=== PATIENT | female | born 1940 | race Caucasian/White ===

== ENCOUNTER 2016-08-28 21:38 | Inpatient (IN) | payer MEDICARE ==
[~2016-08-28] VITALS: Ht 160 cm; Wt 55.5 kg
--- NOTE | 2016-08-28 23:10 | ED CLINICAL REPORT ---
Clinical Report - Physicians/Mid Levels [facility] [address] [place] [address] 08/28/2016 21:40 Patient: AISHA MALIN Time Seen: 2133. Arrived- By ambulance. Historian- EMS personnel and family. HISTORY OF PRESENT ILLNESS Chief Complaint: CHANGED MENTAL STATUS. The patient is described as having decreased responsiveness. This started today and is still present. ( states that pt has been bedridden and minimally verbal since suffering a CVA about 6 weeks ago. He states that he believes she is mentally clear, however. Today, he states, he heard her vomiting upstairs, and ran up to her bed. She vomited copiously, then became unresponsive, yet anxious, hyperventilating. Medics state that when they arrived, pt appeared in distress (anxious, tachypneic). states pt has opted to be DNR/DNI with limited interventions.). The patient was found unresponsive. The patient is usually bedridden (Pt is oriented, per , but nonverbal.). Similar symptoms previously: None. Recent medical care: The patient was seen recently by a health care provider. ( PT was in rehab for weeks after her stroke, and just came home a few days ago.). REVIEW OF SYSTEMS No fever, headache, head injury, dizziness or chest pain. No difficulty breathing, cough, sputum production, blurred vision or sore throat. No abdominal pain, nausea, diarrhea, black stools or difficulty with urination. No skin rash, joint pain, vomiting, bloody stools or back pain. ROS per . All systems otherwise negative, except as recorded above. PAST HISTORY Problems: Akathisia. Hypertension. Anemia. Chf. Hyperlipidemia. Depression. Atrial Fibrillation. CVA - Cerebrovascular Accident. Additional Surgeries: Peg tube. Medications: Probiotic Oral. Tylenol Oral, PRN. Sertraline HCl Oral (Concentrate 20 mg/mL) 5 ml, daily. Nutrisource Fiber Oral. Orajel Mouth/Throat. SEROquel Oral 25 mg, daily (0.5 tab). Polyvinyl Alcohol Ophthalmic. Biotene Moisturizing Mouth Mouth/Throat. Furosemide Oral 20 mg, 2x a day. Aspir-81 Oral. Ferrous Sulfate Oral (Elixir 220 (44 Fe) mg/5mL) 7.5 mL, daily. Vitamin c Oral (Tablet Chewable 500 mg). Potassium Chloride Oral (Liquid 20 MEQ/15ML (10%)), daily. Lisinopril Oral 10 mg, daily. Carvedilol Oral (Tablet 6.25 mg), 2xdaily. Atorvastatin Calcium Oral 20 mg, at bedtime. Allergies: Amlodipine. Phenergan. Simvastatin. Sulfa Drugs. SOCIAL HISTORY Never smoker. No alcohol use or drug use. ADDITIONAL NOTES The nursing notes have been reviewed. PHYSICAL EXAM Vital Signs: 08/28/2016 21:40 BP: 157/77. HR: 107. RR: 28. O2 saturation: 94%. Temp: 37 C. End tidal CO2: 19 mmHg. FLACC pain scale: 7/10. Have been reviewed. Appearance: ( Pt's eyes are open, but she does not respond to voice.). Patient in moderate distress. (Pt is diaphoretic, shaking, tachypneic.). Distress appears due to anxiety. Head: Head atraumatic. Eyes: Pupillary exam: (PERRL). ENT: Normal ENT inspection. Airway intact. Moist mucous membranes. Neck: Normal inspection. CVS: Tachycardia. Heart sounds normal. Pulses normal. Respiratory: No respiratory distress. Breath sounds normal. Abdomen: Soft and nontender. Back: Normal inspection. Skin: Skin warm. Normal skin color. No rash. Normal skin turgor. Moderate diaphoresis. Extremities: No lower extremity edema. Neuro: (Pt is not able to comply with the remainder of the neuro exam.). LABS, X-RAYS, AND EKG EKG: EKG time: (2221). No acute ischemia. Tachycardia. No ST elevation or depression. Prior EKG unavailable. The study has been interpreted contemporaneously by me. The study has been independently viewed by me. The EKG appears to be a good tracing. I agree with and confirm the computer reading of the EKG. Rhythm Strip #1: Time: (2235). Rate= 108. Sinus tachycardia. Regular rhythm. Narrow QRS complexes. No ectopy. Conduction normal. Normal ST segments and T waves. The study was interpreted by me. Chest X-ray: Infiltrate present. Normal heart size. Mediastinum normal. Great vessels normal. Soft tissues normal. No fracture. No bony lesion present. Views: AP (portable). Technique: good. The X-rays were independently viewed by me and interpreted contemporaneously by me. Prior films were not available for comparison. CT Head: White matter disease is present. No acute changes. No bony abnormalities, no hemorrhage, no intracranial mass, no midline shift and no hydrocephalus. There is atrophy is present. Head CT performed without contrast. The study was independently viewed by me, interpreted by the radiologist and contemporaneously by me and discussed with the radiologist. Prior studies were not available for comparison. Laboratory Tests: UA-Culture if indicated: (STANISLAV: 08/28/2016 22:10) ( [facility] 08/28/2016 22:51) Final results Test Result Flag Units (Reference) URINE COLOR YELLOW URINE APPEARANCE HAZY URINE GLUCOSE NEGATIVE (NEGATIVE) URINE BILIRUBIN NEGATIVE (NEGATIVE) URINE KETONE NEGATIVE (NEGATIVE) URINE SPECIFIC GRAVITY 1.015 (1.010-1.030) URINE PH 8.0 (5.0-8.0) URINE PROTEIN TRACE (NEGATIVE) URINE UROBILINOGEN 0.2 EU/dL (0.2-1.0) URINE NITRITE NEGATIVE (NEGATIVE) URINE BLOOD NEGATIVE (NEGATIVE) URINE LEUK ESTERASE NEGATIVE (NEGATIVE) URINE RBC 0-1 rbc/hpf (0-1) URINE WBC 0-1 wbc/hpf (0-1) URINE EPITHELIAL CELLS RARE EPI/hpf (0-5) URINE BACTERIA NONE SEEN (NONE SEEN) URINE COMMENT CULT NOT INDICATED FEW AMORPHOUS PHOSURINE CULTURES ARE SET-UP BASED ON THE FOLLOWING CRITERIA:POSITIVE NITRITEPOSITIVE LEUKOCYTE ESTERASEGREATER THAN 10 WHITE BLOOD CELLSMODERATE (2+) OR GREATER BACTERIA CBC w Diff: (STANISLAV: 08/28/2016 21:50) ( [facility] 08/28/2016 22:14) Final results Test Result Flag Units (Reference) WHITE BLOOD COUNT 8.5 K/uL (4.5-11.5) RED BLOOD COUNT 3.74 L M/uL (4.00-5.20) HEMOGLOBIN 8.9 L gm/dL (12.0-16.0) HEMATOCRIT 28.7 L % (36.0-46.0) MEAN CELL VOLUME 77 L fL (80-100) MEAN CORPUSCULAR HGB 24 L pg (26-34) MEAN CORPUSCULAR HGB CONC 31 g/dL (31-37) RED CELL DISTRIBUTION WIDTH 19.5 H % (11.6-14.8) PLATELET COUNT 380 K/uL (150-400) NEUTROPHIL % 77.6 H % (50-75) LYMPH % 18.8 L % (25-40) MONO % 2.7 L % (3-14) EOSINOPHIL % 0.7 % (0-4) BASOPHIL % 0.2 % (0-2) Lactate, Serum: (STANISLAV: 08/28/2016 21:50) ( [facility] 08/28/2016 22:38) Final results Test Result Flag Units (Reference) LACTIC ACID 5.8 H mmol/L (0.4-2.0) CRITICAL RESULTS CALLEDCalled to VERNON 08/28/16 2238Were 2 patient identifiers used? YWas the result read back? Y CHEM 13 PANEL: (STANISLAV: 08/28/2016 21:50) ( [facility] 08/28/2016 22:28) Final results Test Result Flag Units (Reference) GLUCOSE 164 H mg/dL (70-110) BUN 27 H mg/dL (7-18) CREATININE 0.8 mg/dL (0.6-1.3) Estimated GFR >60 mL/min Estimated GFR- >60 mL/min Note: Persistent reduction over 3 months in eGFR<60 mL/min/1.73 m2 defines CKD. Patients with eGFR values>=60 mL/min/1.73 m2 may also have CKD if evidence ofpersistent proteinuria. Additional information may be foundat [email or web address]. SODIUM 131 L mmol/L (136-145) POTASSIUM 4.8 mmol/L (3.5-5.1) CHLORIDE 96 L mmol/L (98-107) CARBON DIOXIDE 24 mmol/L (21-32) CALCIUM 8.4 L mg/dL (8.5-10.1) TOTAL PROTEIN 9.7 H g/dL (6.4-8.2) ALBUMIN 2.5 L g/dL (3.3-5.0) BILIRUBIN, TOTAL 0.4 mg/dL (0.0-1.0) ALKALINE PHOSPHATASE 76 U/L (46-116) AST (SGOT) 33 U/L (15-37) ALT (SGPT) 30 U/L (12-78) MAGNESIUM 1.9 mg/dL (1.8-2.4) CPK 51 U/L (24-260) TROPONIN I 0.15 ng/mL (0.00-1.5) TROPONIN REFERENCE RANGE:<0.1 NEGATIVE0.1-1.5 INDETERMINANT>1.5 POSITIVE . Pulse Oximetry: 08/28/2016 21:40 O2 saturation: 94%. (FIO2 - room air). Interpretation: normal. PROGRESS AND PROCEDURES Course of Care: Pt was evaluated immediately by myself, upon arrival in the emergency department. I did feel the pt should be worked up for her sx, and I was also concerned about the potential for aspiration, given the pt's vomiting and ALOC, in the setting of recent CVA with significant debility. CT showed old CVA/atrophy, but no acute findings. Lactate level was significantly elevated, though WBC count was normal. Pt was treated with IV abx reflecting potential for aspiration, as well as hospital-acquired PNA. She was given IV fluids boluses. Shortly after arrival, she was also given Ativan 0.5 mg IV, which did improve her distress significantly, and after which she was found to be resting comfortably in bed, and hemodynamically stable. I did advise the pt's of the gravity of the pt's condition, and that we would admit her to the hospital. Discussed case with hospitalist, (Trisha). Reviewed test results and need for additional work-up. Agreed upon treatment plan and decision to admit. Health care provider will see patient in ED. Old medical records reviewed. Disposition: Admitted to Acute Care. Condition: serious. CLINICAL IMPRESSION Sepsis with altered mental status and acute central nervous system failure. Bacterial pneumonia with sepsis. Vital signs recorded and reviewed; empiric antibiotics given in the ED. (hospital-acquired). (Electronically signed by Joy Jerry MD 09/10/2016 21:10) Addenda for AISHA MALIN VisitID: [id number] Date: 08/28/2016 09/01/2016 18:01 contacted pt family because of a blood culture report per provider request; family states Stacy is not running a fever, is on sedatives to keep her from thrashing and is now on hospice with no physician follow-up scheduled at this time; provider (Nargis MORRIS) notified (Electronically signed by Adelita Mcelroy R.N. - 09/01/2016 18:01)
--- NOTE | 2016-08-28 23:10 | ED CLINICAL REPORT ---
Clinical Report - Physicians/Mid Levels [facility] [address] [place] [address] 08/28/2016 21:40 Patient: AISHA MALIN Time Seen: 2133. Arrived- By ambulance. Historian- EMS personnel and family. HISTORY OF PRESENT ILLNESS Chief Complaint: CHANGED MENTAL STATUS. The patient is described as having decreased responsiveness. This started today and is still present. ( states that pt has been bedridden and minimally verbal since suffering a CVA about 6 weeks ago. He states that he believes she is mentally clear, however. Today, he states, he heard her vomiting upstairs, and ran up to her bed. She vomited copiously, then became unresponsive, yet anxious, hyperventilating. Medics state that when they arrived, pt appeared in distress (anxious, tachypneic). states pt has opted to be DNR/DNI with limited interventions.). The patient was found unresponsive. The patient is usually bedridden (Pt is oriented, per , but nonverbal.). Similar symptoms previously: None. Recent medical care: The patient was seen recently by a health care provider. ( PT was in rehab for weeks after her stroke, and just came home a few days ago.). REVIEW OF SYSTEMS No fever, headache, head injury, dizziness or chest pain. No difficulty breathing, cough, sputum production, blurred vision or sore throat. No abdominal pain, nausea, diarrhea, black stools or difficulty with urination. No skin rash, joint pain, vomiting, bloody stools or back pain. ROS per . All systems otherwise negative, except as recorded above. PAST HISTORY Problems: Akathisia. Hypertension. Anemia. Chf. Hyperlipidemia. Depression. Atrial Fibrillation. CVA - Cerebrovascular Accident. Additional Surgeries: Peg tube. Medications: Probiotic Oral. Tylenol Oral, PRN. Sertraline HCl Oral (Concentrate 20 mg/mL) 5 ml, daily. Nutrisource Fiber Oral. Orajel Mouth/Throat. SEROquel Oral 25 mg, daily (0.5 tab). Polyvinyl Alcohol Ophthalmic. Biotene Moisturizing Mouth Mouth/Throat. Furosemide Oral 20 mg, 2x a day. Aspir-81 Oral. Ferrous Sulfate Oral (Elixir 220 (44 Fe) mg/5mL) 7.5 mL, daily. Vitamin c Oral (Tablet Chewable 500 mg). Potassium Chloride Oral (Liquid 20 MEQ/15ML (10%)), daily. Lisinopril Oral 10 mg, daily. Carvedilol Oral (Tablet 6.25 mg), 2xdaily. Atorvastatin Calcium Oral 20 mg, at bedtime. Allergies: Amlodipine. Phenergan. Simvastatin. Sulfa Drugs. SOCIAL HISTORY Never smoker. No alcohol use or drug use. ADDITIONAL NOTES The nursing notes have been reviewed. PHYSICAL EXAM Vital Signs: 08/28/2016 21:40 BP: 157/77. HR: 107. RR: 28. O2 saturation: 94%. Temp: 37 C. End tidal CO2: 19 mmHg. FLACC pain scale: 7/10. Have been reviewed. Appearance: ( Pt's eyes are open, but she does not respond to voice.). Patient in moderate distress. (Pt is diaphoretic, shaking, tachypneic.). Distress appears due to anxiety. Head: Head atraumatic. Eyes: Pupillary exam: (PERRL). ENT: Normal ENT inspection. Airway intact. Moist mucous membranes. Neck: Normal inspection. CVS: Tachycardia. Heart sounds normal. Pulses normal. Respiratory: No respiratory distress. Breath sounds normal. Abdomen: Soft and nontender. Back: Normal inspection. Skin: Skin warm. Normal skin color. No rash. Normal skin turgor. Moderate diaphoresis. Extremities: No lower extremity edema. Neuro: (Pt is not able to comply with the remainder of the neuro exam.). LABS, X-RAYS, AND EKG EKG: EKG time: (2221). No acute ischemia. Tachycardia. No ST elevation or depression. Prior EKG unavailable. The study has been interpreted contemporaneously by me. The study has been independently viewed by me. The EKG appears to be a good tracing. I agree with and confirm the computer reading of the EKG. Rhythm Strip #1: Time: (2235). Rate= 108. Sinus tachycardia. Regular rhythm. Narrow QRS complexes. No ectopy. Conduction normal. Normal ST segments and T waves. The study was interpreted by me. Chest X-ray: Infiltrate present. Normal heart size. Mediastinum normal. Great vessels normal. Soft tissues normal. No fracture. No bony lesion present. Views: AP (portable). Technique: good. The X-rays were independently viewed by me and interpreted contemporaneously by me. Prior films were not available for comparison. CT Head: White matter disease is present. No acute changes. No bony abnormalities, no hemorrhage, no intracranial mass, no midline shift and no hydrocephalus. There is atrophy is present. Head CT performed without contrast. The study was independently viewed by me, interpreted by the radiologist and contemporaneously by me and discussed with the radiologist. Prior studies were not available for comparison. Laboratory Tests: UA-Culture if indicated: (STANISLAV: 08/28/2016 22:10) ( [facility] 08/[facility] 22:51) Final results Test Result Flag Units (Reference) URINE COLOR YELLOW URINE APPEARANCE HAZY URINE GLUCOSE NEGATIVE (NEGATIVE) URINE BILIRUBIN NEGATIVE (NEGATIVE) URINE KETONE NEGATIVE (NEGATIVE) URINE SPECIFIC GRAVITY 1.015 (1.010-1.030) URINE PH 8.0 (5.0-8.0) URINE PROTEIN TRACE (NEGATIVE) URINE UROBILINOGEN 0.2 EU/dL (0.2-1.0) URINE NITRITE NEGATIVE (NEGATIVE) URINE BLOOD NEGATIVE (NEGATIVE) URINE LEUK ESTERASE NEGATIVE (NEGATIVE) URINE RBC 0-1 rbc/hpf (0-1) URINE WBC 0-1 wbc/hpf (0-1) URINE EPITHELIAL CELLS RARE EPI/hpf (0-5) URINE BACTERIA NONE SEEN (NONE SEEN) URINE COMMENT CULT NOT INDICATED FEW AMORPHOUS PHOSURINE CULTURES ARE SET-UP BASED ON THE FOLLOWING CRITERIA:POSITIVE NITRITEPOSITIVE LEUKOCYTE ESTERASEGREATER THAN 10 WHITE BLOOD CELLSMODERATE (2+) OR GREATER BACTERIA CBC w Diff: (STANISLAV: 08/28/2016 21:50) ( [facility] 08/28/2016 22:14) Final results Test Result Flag Units (Reference) WHITE BLOOD COUNT 8.5 K/uL (4.5-11.5) RED BLOOD COUNT 3.74 L M/uL (4.00-5.20) HEMOGLOBIN 8.9 L gm/dL (12.0-16.0) HEMATOCRIT 28.7 L % (36.0-46.0) MEAN CELL VOLUME 77 L fL (80-100) MEAN CORPUSCULAR HGB 24 L pg (26-34) MEAN CORPUSCULAR HGB CONC 31 g/dL (31-37) RED CELL DISTRIBUTION WIDTH 19.5 H % (11.6-14.8) PLATELET COUNT 380 K/uL (150-400) NEUTROPHIL % 77.6 H % (50-75) LYMPH % 18.8 L % (25-40) MONO % 2.7 L % (3-14) EOSINOPHIL % 0.7 % (0-4) BASOPHIL % 0.2 % (0-2) Lactate, Serum: (STANISLAV: 08/28/2016 21:50) ( [facility] 08/28/2016 22:38) Final results Test Result Flag Units (Reference) LACTIC ACID 5.8 H mmol/L (0.4-2.0) CRITICAL RESULTS CALLEDCalled to HAWORTH 08/28/16 2238Were 2 patient identifiers used? YWas the result read back? Y CHEM 13 PANEL: (STANISLAV: 08/28/2016 21:50) ( [facility] 22:28) Final results Test Result Flag Units (Reference) GLUCOSE 164 H mg/dL (70-110) BUN 27 H mg/dL (7-18) CREATININE 0.8 mg/dL (0.6-1.3) Estimated GFR >60 mL/min Estimated GFR- >60 mL/min Note: Persistent reduction over 3 months in eGFR<60 mL/min/1.73 m2 defines CKD. Patients with eGFR values>=60 mL/min/1.73 m2 may also have CKD if evidence ofpersistent proteinuria. Additional information may be foundat [email or web address].org. SODIUM 131 L mmol/L (136-145) POTASSIUM 4.8 mmol/L (3.5-5.1) CHLORIDE 96 L mmol/L (98-107) CARBON DIOXIDE 24 mmol/L (21-32) CALCIUM 8.4 L mg/dL (8.5-10.1) TOTAL PROTEIN 9.7 H g/dL (6.4-8.2) ALBUMIN 2.5 L g/dL (3.3-5.0) BILIRUBIN, TOTAL 0.4 mg/dL (0.0-1.0) ALKALINE PHOSPHATASE 76 U/L (46-116) AST (SGOT) 33 U/L (15-37) ALT (SGPT) 30 U/L (12-78) MAGNESIUM 1.9 mg/dL (1.8-2.4) CPK 51 U/L (24-260) TROPONIN I 0.15 ng/mL (0.00-1.5) TROPONIN REFERENCE RANGE:<0.1 NEGATIVE0.1-1.5 INDETERMINANT>1.5 POSITIVE . Pulse Oximetry: 08/28/2016 21:40 O2 saturation: 94%. (FIO2 - room air). Interpretation: normal. PROGRESS AND PROCEDURES Course of Care: Pt was evaluated immediately by myself, upon arrival in the emergency department. I did feel the pt should be worked up for her sx, and I was also concerned about the potential for aspiration, given the pt's vomiting and ALOC, in the setting of recent CVA with significant debility. CT showed old CVA/atrophy, but no acute findings. Lactate level was significantly elevated, though WBC count was normal. Pt was treated with IV abx reflecting potential for aspiration, as well as hospital-acquired PNA. She was given IV fluids boluses. Shortly after arrival, she was also given Ativan 0.5 mg IV, which did improve her distress significantly, and after which she was found to be resting comfortably in bed, and hemodynamically stable. I did advise the pt's of the gravity of the pt's condition, and that we would admit her to the hospital. Discussed case with hospitalist, (Trisha). Reviewed test results and need for additional work-up. Agreed upon treatment plan and decision to admit. Health care provider will see patient in ED. Old medical records reviewed. Disposition: Admitted to Acute Care. Condition: serious. CLINICAL IMPRESSION Sepsis with altered mental status and acute central nervous system failure. Bacterial pneumonia with sepsis. Vital signs recorded and reviewed; empiric antibiotics given in the ED. (hospital-acquired). (Electronically signed by Joy Jerry MD 09/10/2016 21:10) Addenda for AISHA MALIN VisitID: [id number] Date: 08/28/2016 09/01/2016 18:01 contacted pt family because of a blood culture report per provider request; family states Stacy is not running a fever, is on sedatives to keep her from thrashing and is now on hospice with no physician follow-up scheduled at this time; provider (Nargis MORRIS) notified (Electronically signed by Adelita Mcelroy R.N. - 09/01/2016 18:01)
--- NOTE | 2016-08-28 23:10 | ED ORDER SUMMARY ---
..... Patient: AISHA MALIN OrderSheet [facility] VisitID: [id number] [address] [place] [address] 76y, F Registration Date/Time: 08/28/2016 ORDER SHEET Weight: 52.6 kg (measured) Allergies: Phenergan, Sulfa Drugs, Simvastatin, Amlodipine GENERAL ORDERS: Blood Culture (No) (N/A) Urgent (21:44 08/28/2016 AMcQuoid ER Tech1 verbal order read back to Ethan DAMON) (Ack 21:48 ALawrence ER Tech1) (22:13 ASchmuck) Bias Cutting Machine Operator (Continuous) (:44 08/28/2016 AMcQuoid ER Tech1 verbal order read back to Ethan DAMON) (Ack 21:48 ALawrence ER Tech1) (21:48 ALawrence ER Tech1) UA-Culture if indicated Urgent (21:44 08/28/2016 AMcQuoid ER Tech1 verbal order read back to Ethan DAMON) (Ack 21:48 ALawrence ER Tech1) (22:05 ASchmuck) Cardiac Panel Stat (21:44 08/28/2016 AMcQuoid ER Tech1 verbal order read back to Ethan DAMON) (Ack 21:48 ALawrence ER Tech1) (22:13 ASchmuck) Lactate, Serum Urgent (21:44 08/28/2016 AMcQuoid ER Tech1 verbal order read back to Ethan DAMON) (Ack 21:48 ALawrence ER Tech1) (22:13 ASchmuck) Pulse oximeter (21:44 08/28/2016 AMcQuoid ER Tech1 verbal order read back to Ethan DAMON) (Ack 21:48 ALawrence ER Tech1) (21:48 ALawrence ER Tech1) Oxygen (2 L/min) (NC) (21:44 08/28/2016 AMcQuoid ER Tech1 verbal order read back to Ethan DAMON) (Ack 21:48 ALawrence ER Tech1) (21:48 ALawrence ER Tech1) Chest 1V Urgent (21:44 08/28/2016 AMcQuoid ER Tech1 verbal order read back to Ethan DAMON) (Ack 21:48 ALawrence ER Tech1) (22:23 ALawrence ER Tech1) CT Head wo Cont Urgent (21:45 08/28/2016 AMcQuoid ER Tech1 verbal order read back to Ethan DAMON) (Ack 21:48 ALawrence ER Tech1) (22:22 MCampbell) EKG - ER Stat (22:18 08/28/2016 Ethan DAMON) (Ack 22:19 ALawrence ER Tech1) (22:23 ALawrence ER Tech1) MEDICATION ORDERS: Gentamicin IV 250 mg IV x 1 (NOW) (23:46 08/28/2016 Ethan DAMON) (Ack 0:00 ASchmuck) IV FLUIDS: Ativan IV 0.5 mg (HIGH ALERT MEDICATION, NOW) (22:07 08/28/2016 ASchmuck verbal order read back to Ethan DAMON) (22:08 ASchmuck) Cleocin IV 900 mg/50mL (NOW) (22:35 08/28/2016 Ethan DAMON) (Ack 22:45 ASchmuck) (22:51 ASchmuck) IV NS : initial bolus 1000 mL (1000 mL/hr), then 1000 mL/hr for X1 (NOW) (first 250 mls given by EMS.) (23:02 08/28/2016 ASchmuck verbal order read back to Ethan DAMON) (23:03 ASchmuck) Zosyn IV 4.5 gm/100mL (NOW) (23:46 08/28/2016 Ethan DAMON) (Ack 0:00 ASchmuck) Vancomycin IV 1 gm/200mL (NOW) (23:49 08/28/2016 Ethan DAMON) (Ack 0:00 ASchmuck) (0:19 ASchmuck) ORDER SHEET NOTES: [Electronically signed by Peg Daniels (01:17 08/29/2016)] [Electronically signed by Joy Jerry MD (21:10 09/10/2016)] [Electronically locked/signed by Peg Daniels (:17 08/29/2016)]
--- NOTE | 2016-08-28 23:10 | ED ORDER SUMMARY ---
..... Patient: AISHA MALIN OrderSheet [facility] VisitID: [id number] [address] [place] [address] 76y, F Registration Date/Time: 08/28/2016 ORDER SHEET Weight: 52.6 kg (measured) Allergies: Phenergan, Sulfa Drugs, Simvastatin, Amlodipine GENERAL ORDERS: Blood Culture (No) (N/A) Urgent (21:44 08/28/2016 AMcQuoid ER Tech1 verbal order read back to Ethan DAMON) (Ack 21:48 ALawrence ER Tech1) (22:13 ASchmuck) Silver Plater (Continuous) (:44 08/28/2016 AMcQuoid ER Tech1 verbal order read back to Ethan DAMON) (Ack 21:48 ALawrence ER Tech1) (21:48 ALawrence ER Tech1) UA-Culture if indicated Urgent (21:44 08/28/2016 AMcQuoid ER Tech1 verbal order read back to Ethan DAMON) (Ack 21:48 ALawrence ER Tech1) (22:05 ASchmuck) Cardiac Panel Stat (21:44 08/28/2016 AMcQuoid ER Tech1 verbal order read back to Ethan DAMON) (Ack 21:48 ALawrence ER Tech1) (22:13 ASchmuck) Lactate, Serum Urgent (21:44 08/28/2016 AMcQuoid ER Tech1 verbal order read back to Ethan DAMON) (Ack 21:48 ALawrence ER Tech1) (22:13 ASchmuck) Pulse oximeter (21:44 08/28/2016 AMcQuoid ER Tech1 verbal order read back to Ethan DAMON) (Ack 21:48 ALawrence ER Tech1) (21:48 ALawrence ER Tech1) Oxygen (2 L/min) (NC) (21:44 08/28/2016 AMcQuoid ER Tech1 verbal order read back to Ethan DAMON) (Ack 21:48 ALawrence ER Tech1) (21:48 ALawrence ER Tech1) Chest 1V Urgent (21:44 08/28/2016 AMcQuoid ER Tech1 verbal order read back to Ethan DAMON) (Ack 21:48 ALawrence ER Tech1) (22:23 ALawrence ER Tech1) CT Head wo Cont Urgent (21:45 08/28/2016 AMcQuoid ER Tech1 verbal order read back to Ethan DAMON) (Ack 21:48 ALawrence ER Tech1) (22:22 MCampbell) EKG - ER Stat (22:18 08/28/2016 Ethan DAMON) (Ack 22:19 ALawrence ER Tech1) (22:23 ALawrence ER Tech1) MEDICATION ORDERS: Gentamicin IV 250 mg IV x 1 (NOW) (23:46 08/28/2016 Ethan DAMON) (Ack 0:00 ASchmuck) IV FLUIDS: Ativan IV 0.5 mg (HIGH ALERT MEDICATION, NOW) (22:07 08/28/2016 ASchmuck verbal order read back to Ethan DAMON) (22:08 ASchmuck) Cleocin IV 900 mg/50mL (NOW) (22:35 08/28/2016 Ethan DAMON) (Ack 22:45 ASchmuck) (22:51 ASchmuck) IV NS : initial bolus 1000 mL (1000 mL/hr), then 1000 mL/hr for X1 (NOW) (first 250 mls given by EMS.) (23:02 08/28/2016 ASchmuck verbal order read back to Ethan DAMON) (23:03 ASchmuck) Zosyn IV 4.5 gm/100mL (NOW) (23:46 08/28/2016 Ethan DAMON) (Ack 0:00 ASchmuck) Vancomycin IV 1 gm/200mL (NOW) (23:49 08/28/2016 Ethan DAMON) (Ack 0:00 ASchmuck) (0:19 ASchmuck) ORDER SHEET NOTES: [Electronically signed by Peg Daniels (01:17 08/29/2016)] [Electronically signed by Joy Jerry MD (21:10 09/10/2016)] [Electronically locked/signed by Peg Daniels (:17 08/29/2016)]
--- NOTE | 2016-08-28 23:10 | ED NURSING NOTES ---
Clinical Report - Nurses [facility] [address] [place] [address] 08/28/2016 21:40 Patient: AISHA MALIN TRIAGE Triage time 21:35 Aug 28 2016. Acuity: LEVEL 2. Chief Complaint: ALTERED MENTAL STATUS. 21:58 08/28/16. Not alert. SEPSIS SCREEN: Sepsis Screen. Infection suspected/documented. Heart rate greater than 90 and respiratory rate greater than 20. Temperature not greater than 38.3 degrees C (101 degrees F). KWAME COMA SCORE: [place] Coma Scale: 6- eyes do not open (1); best verbal response- none (1); best motor response- withdrawal (4). --21:58 Peg Daniels 21:40 08/28/16. BP: 157/77. HR: 107. RR: 28. O2 saturation: 94%. Temp: 37 C. End tidal CO2: 19 mmHg. FLACC pain scale: 7/10. --21:58 Peg Daniels. Weight: 52.6 kg measured. Height/Length: 63 inches Estimated. BMI: 20.5. --21:58 Peg Daniels. Medications Atorvastatin Calcium Oral 20 mg, at bedtime. --21:48 Peg Daniels Carvedilol Oral (Tablet 6.25 mg), 2xdaily. --21:48 Peg Daniels Lisinopril Oral 10 mg, daily. --21:49 Peg Daniels Potassium Chloride Oral (Liquid 20 MEQ/15ML (10%)), daily. --21:49 Peg Daniels Vitamin c Oral (Tablet Chewable 500 mg). --21:49 Peg Daniels Ferrous Sulfate Oral (Elixir 220 (44 Fe) mg/5mL) 7.5 mL, daily. --21:50 Peg Daniels Aspir-81 Oral. --21:50 Peg Daniels Furosemide Oral 20 mg, 2x a day. --21:50 Peg Daniels Biotene Moisturizing Mouth Mouth/Throat. --21:50 Peg Daniels Polyvinyl Alcohol Ophthalmic. --21:50 Peg Daniels SEROquel Oral 25 mg, daily (0.5 tab). --21:51 Peg Daniels Orajel Mouth/Throat. --21:51 Peg Daniels Nutrisource Fiber Oral. --21:52 Peg Daniels Sertraline HCl Oral (Concentrate 20 mg/mL) 5 ml, daily. --21:52 Peg Daniels Tylenol Oral, PRN. --21:52 Peg Daniels Probiotic Oral. --21:53 Peg Daniels. Medication/allergy information source: the patient's family. --21:58 Peg Daniels. Allergies Phenergan. Sulfa Drugs. --21:53 Peg Daniels Simvastatin. --21:55 Peg Daniels Amlodipine. --21:56 Peg Daniels. History Arrived by EMS. Historian: EMS. Accompanied by ( via POV). This started just prior to arrival. ( Family unsure of when stroke was, unable to tell a rough time frame for EMS>). The patient has had fever and trouble walking. The patient has had incontinence (preexisting). Treatment TELEPHONE WORKER: See EMS report. EMS treatment TELEPHONE WORKER verbally communicated. Finger stick glucose performed (215). Pre-hospital 12-lead EKG (EMS reports they were unable to attain). BP: 160/70. HR: 110-120. O2 saturation: 97 % room air. End tidal CO2: 28. ( EMS states that 911 was called by when patient turned to the side and threw up. EMS was unable to determine baseline LOC, however they do know that patient is normally bedridden, following several strokes. Pt is DNR/DNI.). PAST MEDICAL HX: Hypertension. Stroke. SKIN INTEGRITY ASSESSMENT: Skin integrity risk assessment was performed. Risk factors identified include restricted mobility, non ambulatory, bedridden and complete positioning assistance. Skin breakdown noted on the coccyx. NUTRITIONAL RISK ASSESSMENT: The nutritional risk assessment revealed no deficiencies. FUNCTIONAL ASSESSMENT: Functional assessment: no impairments noted. LEARNING NEEDS ASSESSMENT: The learning needs assessment revealed no barriers. FALL RISK ASSESSMENT: Fall risk assessment completed. Risk factors identified include patient age greater than 65 years and impairment of mobility, sensation and cognition. Fall interventions initiated. Patient placed on stretcher. Side rails up x2. Patient visible from nurses' station. Family at bedside. Call light in reach of family. --:58 Peg Daniels. PROBLEMS: Akathisia. Hypertension. Anemia. Chf. Hyperlipidemia. Depression. Atrial Fibrillation. CVA - Cerebrovascular Accident. --21:56 Peg Daniels. ADDITIONAL SURGERIES: Peg tube. --:56 Peg Daniels. Assessment The patient states feels the same. --:58 Peg Daniels. Interventions ID band on patient. --:58 Peg Daniels. PHYSICAL ASSESSMENT 22:08/28/16. To room via stretcher. Patient gowned. GENERAL / NEURO / PSYCH: The patient is unresponsive, appears ill and is pale and dehydrated. The patient is under weight and bedridden. Decreased awareness (does not open eyes to pain and lethargic). The patient has had pre-existing weakness. The patient appears cachectic. Pupillary exam: Right pupil 2mm, round and sluggishly reactive to light directly. Left pupil: 2mm, round and sluggishly reactive to light directly. RESPIRATORY: Mild respiratory distress. Breath sounds within normal limits. ( snoring respirations corrected with positioning.). CVS: Cardiac rhythm: sinus rhythm; (trigenminy). No abnormal heart sounds. Pulses: right brachial 2+, left brachial 2+, right radial 2+, left radial 2+, right dorsalis pedis 2+, left dorsalis pedis 2+, right posterior tibial 2+ and left posterior tibial 2+. GI / : Abdomen soft and nontender. Bowel sounds within normal limits. SKIN: Skin is pale. Skin is cool and diaphoretic. Skin breakdown noted on coccyx. --22:03 Peg Daniels 22:08/28/16. ( Blood on tongue with bite martinez.). --22:06 Peg Daniels. NURSING PROGRESS NOTES 21:45 08/28/2016 Ativan (LORazepam) IVP 0.5 mg given over 30 second(s) via site #1. Allergies verified and confirmed 5 rights. IV patency established. IV site checked: no pain, redness, or swelling. IV flushed thoroughly pre- and post-medication administration. IVP given by RN (Given by ERICA Spears). --22: Peg Daniels 21:52 08/28/2016 Site #1 started prior to arrival by EMS via IV in the right wrist with an 18g angiocath. --22: Peg Daniels :08/28/16. Oxygen administered by nasal cannula at 3 liters. monitoring analyst, pulse oximeter, end tidal CO2 monitor and NIBP monitor placed on patient; teletypesetter monitor- Lead II and V5; monitor alarms on (also monitoring temp via chávez). Patient gowned. Head of bed elevated. 16 fr chávez catheter placed. Reason for indwelling catheter: patient's decreased level of consciousness. During procedure hand hygiene observed and sterile equipment and aseptic technique used. Return of less than 50 mL uziel-colored cloudy urine, sediment noted; attached to bedside drainage bag positioned below the bladder and urimeter and secured with strap. The patient tolerated procedure well (Placed by Agustín RN). Patient ID band checked for patient name and birthdate: family confirmed. Catheterized urine collected with return of uziel-colored cloudy urine, sediment noted; sample sent to lab. Specimen labeled in the presence of the patient. Two patient identifiers checked. Side rails up x 2. Bed placed in lowest position. Brakes of bed on. Patient ready for evaluation- chart flagged and ED physician notified. ( One blanket placed on patient for comfort.). --: Peg Daniels 08/28/16. Reassessment after medication administered. She is resting quietly. Overall patient status is improved- she states feels better. --: Peg Daniels :08/28/16. BP: 104/40. HR: 73. RR: 24. O2 saturation: 95% on nasal cannula at 3 liters/minute. Temp: 37.5 C. Pain level now: 0/10. --22: Peg Daniels 22:08/28/16. Patient transported to radiology by stretcher with nurse. --22:09 Peg Daniels 22:22. EKG was performed by a tech. --22:24 Uziel Castrejon, RIK Tech1 22:25 08/28/16. BP: 112/41. HR: 72. RR: 24. O2 saturation: 95%. O2 started via nasal cannula at 3 liters/minute. Temp: 37.5 C. End tidal CO2: 24 mmHg; with normal waveform via cannula device; adult colorimetric detector used. Additional comments: Temp by chávez cath. --22:28 Parker Joe R.N. Cardiac rhythm: normal sinus rhythm; PVCs. Reassessment after procedure (CT Scan). --22:28 Parker Joe R.N. Critical value relayed to ED by [facility]. Critical value received by Teri Dow. Lactate level: 5.8. Critical value read back. Verified lab result and patient ID. ED physician notifed of critical value. --22:38 Teri Dow 22:51 08/28/2016 Started 900 mg of Cleocin (Clindamycin Phosphate) IVPB in bag #1 50 mL; at 100 mL/hr over 30 minute(s) via site #1 via IV pump. Allergies verified and confirmed 5 rights. IV patency established. IV site checked: no pain, redness, or swelling. IV flushed thoroughly pre- and post-medication administration. --22:51 Peg Daniels 22:52 08/28/16. BP: 97/34. HR: 72. RR: 24. O2 saturation: 96% on nasal cannula at 3 liters/minute. Temp: 37.3 C. End tidal CO2: 21 mmHg. FLACC pain scale: 0/10. --22:52 Peg Daniels 22:52 08/28/16. --22:52 Peg Daniels Reassessment after (xray). ( On auscultation posteriorly noted to have crackles to bases R>L). RESPIRATORY: Crackles right lung base posteriorly; abnormal breath sounds left lung base posteriorly. CVS: Cardiac rhythm: normal sinus rhythm; frequent PVCs. SKIN: Skin is diaphoretic. --22:58 Parker Joe R.N. 23:03 08/28/2016 Started bag #1 1000 mL IV Fluids IV NS (Saline); at 1000 mL/hr over 45 minute(s) via site #1 via IV pump. Allergies verified and confirmed 5 rights. IV patency established. IV site checked: no pain, redness, or swelling. IV flushed thoroughly pre- and post-medication administration (First 250 ml given by EMS TELEPHONE WORKER.). --23:03 Peg Daniels 23:13 08/28/16. ( at bedside. Reports that patient normally is able to say "yes" and "no" and recognizes people she knows. She normally only eats through her PEG tube. She had gotten home from rehab for her CVA. She had a CVA in March and June. She was contracted today and not normally contracted, per . He called 911 when he was SOB when position changed.). --23:13 Peg Daniels 23:21 08/28/2016 Cleocin IVPB Discontinued: bag #1 infused. Total amount infused: 50 mL. --00:14 Peg Daniels 23:48 08/28/2016 IV Fluids IV NS Discontinued: bag #1. Total amount infused: 1000 mL (first 250 ml given by EMS). --00:38 Peg Daniels 00:19 08/29/2016 Started 1 gm of Vancomycin IVPB in bag #1 200 mL; at 200 mL/hr over 1 hour(s) via site #1 via IV pump. Allergies verified and confirmed 5 rights. IV patency established. IV site checked: no pain, redness, or swelling. IV flushed thoroughly pre- and post-medication administration. --00:19 Peg Daniels 00:38 08/29/2016 Site #[address] upon admission; patent, no pain and no signs of infection or infiltration. --00:38 Peg Daniels 00:39 08/29/2016 Vancomycin IVPB Continued: upon admission at the rate of 200 mL/hr. 120 mL remaining bag #1. --00:39 Peg Daniels. DISPOSITION / DISCHARGE 00:35 08/29/16. Condition at departure: improved. The goals identified in the patient's plan of care were met. Fall risk assessment completed. Risk factors identified include patient age greater than 65 years and impairment of mobility and cognition. Fall interventions initiated. Patient placed on stretcher. Side rails up x2. Admitted to Acute Care. Transported via stretcher by nurse with IV and O2. Report was given to a nurse via a phone call. Report included patient's care, treatment, medications, reviewed medication reconcilliation, and condition (including any recent changes or anticipated changes). All questions were answered. Report was acknowledged and care was transferred. (Franki). Bed obtained and ready. Patient's personal items include, All belongings placed in bag and sent with patient. --00:35 Peg Daniels 00:29 08/29/16. BP: 123/42. HR: 70. RR: 24. O2 saturation: 96% on face mask at 3 liters/minute. Temp: 36.9 C. FLACC pain scale: 0/10. --00:35 Peg Daniels. Locked/Released at 08/29/2016 1:17 by Peg Daniels,
--- NOTE | 2016-08-28 23:23 | DIAGNOSTIC IMAGING REPORT ---
PROCEDURE: XR CHEST 1 VIEW INDICATION: FEVER TECHNIQUE: Single view chest. 22:45 hour COMPARISON: 05/03/2009 FINDINGS: Moderate cardiomegaly status post CABG and wires. No central vascular congestion. Patchy alveolar opacity in the right infrahilar region. Mild diffuse peribronchial thickening. No significant pleural effusion or pneumothorax. Intact osseous structures. IMPRESSION: 1. Right infrahilar alveolar opacity may be infectious pneumonia or aspiration. 2. Slight bilateral peribronchial thickening suggestive of bronchitis, acute infectious or chronic. 3. Moderate cardiomegaly post CABG.
--- NOTE | 2016-08-28 23:27 | DIAGNOSTIC IMAGING REPORT ---
PROCEDURE: CT HEAD WITHOUT CONTRAST INDICATION: MENTAL STATUS CHANGE TECHNIQUE: Axial CT images were acquired through the head. Coronal and sagittal reformations were created. COMPARISON: Brain MRI 06/18/2004 FINDINGS: Moderate size ill-defined, wedge-shaped area of hypodensity involving sequeira and white matter in the right temporo-occipital region measuring approximately 4.2 x 2.6 by about 2.9 cm. Small irregular, hypodense area, approximately 2.1 cm in the inferior right occipital/posterior temporal region. A small area of cortical hypodensity in the left occipital lobe. Moderate hypodensity in the left frontotemporal region overlying an area of profound hypodensity involving the left basal ganglia. There is slight ex vacuo dilatation of the left lateral ventricle, particularly left frontal horn. These changes are superimposed on mild cerebral cortical atrophy. No acute intraparenchymal or extraaxial hemorrhage, mass, or midline shift. Basal cisterns and ventricular system remains patent. Moderate internal carotid atherosclerosis. Intact calvarium. Normally aerated sinuses and mastoid cavities. Normal extracranial soft tissues. IMPRESSION: 1. Multiple areas of hypodensity in bilateral cortical and white matter which likley range in acuity from subacute to chronic. Comparison to prior studies recommended. If needed, MRI of the brain to determine the acuity of various findings. 2. No acute hemorrhage or mass. 3. Moderate internal carotid atherosclerosis. 4. Discussed with Dr. Jerry in the emergency room at [address] scans at this facility use dose modulation, iterative reconstruction, and/or weight-based dosing when appropriate to reduce radiation dose to as low as reasonably achievable.
[2016-08-29] VITALS (9 sets, daily range): BP systolic 78–150; BP diastolic 38–81
--- NOTE | 2016-08-29 01:01 | Progress Note ---
Subjective General Admission History and Physical Examination Patient Name: Dixie Sheppard Admission Date: 08/29/2016 Primary Care Provider: Celeste Hernandez MD Attending Physician: Paresh Reeves M.D. Admitting Physician: Abraham Rico MD Code Status: No Code Room: 209 SUBJECTIVE Historian: history unattainable by patient. All history was through emergency department and through her . Reliability: undetermined Chief Complaint: Changes in mental status Gurgling History of Present Illness: The patient is a 76-year-old white female with history of multiple strokes ( left MCA stroke 05/23/16) (right MCA ) now right Hemeplegia, with aphagia and PEG,, CAD , S/P 3 vessel bypass 2006, paroxysmal A. fib, hypertension, hyperlipidemia, PVD, CHF (Last echo showing 50% EF), who presented to [facility] emergency department on the day of admission secondary to changes in her normal base line mental status and with difficulty breathing.. [facility] ER evaluation was consistent with right lower lobe pneumonia, lactic acidosis, mental status change from baseline addition to tachycardi, potential sepsis. The patient has just recently returned home after being in acute rehabilitation facility with [facility] for the past 4 weeks. There she was treated in rehabilitation for stroke 2 with right-sided hemiplegia. Her initial stroke was in March [id number] the right hemisphere; at that time, an endarterectomy of the carotids was performed. Patient one month later sustained further stroke involving the left MCA and left hemisphere causing right-sided hemiplegia. Patient was managed her prominence and through [facility]. Patient had a PEG tube placed due to poor swallowing, dysphagia. Patient is dysphasic. 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 But will have home health unavailable. Patient just returned home on 22 August. This evening, patient's and went in to see patient. She apparently had taken off her soiled briefs. She is also found to have changes in her mental status from her normal baseline. Patient also noticed a gurgling sound coming from her chest. Concern for repeated pneumonia. He brought her to the [facility] ED for further workup. [facility] ED, she was placed onsepsis protocol due to elevated lactic acid. On x-rays found that she had bright lower lobe infiltrates.Patient also was found to be in A. fib with RVR. Rate control was attempted with Limited success. Patient was admitted under the acute care with telemetry. Secondary to the above, the patient was admitted By Abraham Rico M.D.. for further evaluation and treatment. PAST MEDICAL HISTORY Illnesses: 1. CAD status post CABG 2006 2. CHF 3. CVA right-sided hemiplegia, aphasia 4. PAD 5. Dysphagia 6. Hypertension. 7. Hyperlipidemia. 8. Paroxysmal A. fib Allergies: 1. Sulfa, promethazine 2. Amlodipine nausea 3. Simvastatin diarrhea Medications: 1.Atorvastatin 20 mg by PEG tube daily 2. Carvedilol 6.25 mg enteral tube every 12 hours 3. Lisinopril 10 mg 1 tab enteral tube daily 4. Potassium chloride 20 mmHg per 15 mill 15 [place] by enteral tube daily 5. Vitamin C 500 mg enteral tube thousand milligrams daily. 6. Ferrous sulfate 44 FE, MG/5 mils. Taking 7.5 ml by enteral tube daily 7. Aspirin 324 mg enteral tube daily 8. Furosemide 40 mg enteral tube daily 9. Biotin dry mouth, mouthwash liquid sublingual I mouth 4 times per day 10. Liquid tears 1.4% solution 1-2 drops daily 11. Seroquel 12.5 mg daily. 12. Benzocaine 10% gel to apply to sore gums 13. Nature source fiber 50 mils one scoop in water in the antral tube daily 14. Sertraline 100 mg by enteral tube daily 15. Tylenol 325 mg 2 tabs as needed 16. Probiotic 250 mg By enteral tube daily Surgery: 1. CABG with stent placement 2006. 2. Sinus surgery. 3. Coronary angioplasty with stent placement. 4. Transesophageal echocardiogram. 5. Carotid endarterectomy Injuries: 1. None Hospitalizations: 1. [facility] 2016 2. [facility] 2004 FAMILY HISTORY Parents: 1. Father, passsed from complications arising from liver cirrhosis.70s, 2. Mother, house with patient 92 from old age Children: 1. 2 boys ages 54 and 44, daughter 57 SOCIAL HISTORY 1. Marital Status: 55 years marriage 2. Catholic: Mosque 3. 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 Occupational health exposures: none HABITS 1. Tobacco: , remote history quit in the 80s 2. Drugs: none 3. Alcohol:none HEALTH SUPERVISION Item/Test Unknown IMMUNIZATIONS: Need to follow-up on record 1. Pneumococcal: [pneumonia] 2. Influenza: [flu] 3. Tetanus: [tet] ADVANCED DIRECTIVES: 1. Living well: available on file 2. POLST: available in the home 3. Code Status: no code 4. Durable Power Peanut Picker Health care: Shelbyer Silver 5. Donor card: unknown REVIEW OF SYSTEMS Remarkable for those things stated in the history of present illness and past medical history. ROS Constitutional Weakness, Malaise. Denies: Fever. Eyes Other. Cardiovascular Other. Physical Exam Vital Signs / I&Os Vital Signs Date Time Temp Pulse Resp B/P Pulse O2 O2 Flow FiO2 Ox Delivery Rate 08/29 0126 98.4 69 21 106/49 95 Mask 3.0 General Appearance Mild distress, non responsive HEENT dry mucous membranes Lungs decrease air movement. Shallow breathing Neck Supple, No JVD Cardiovascular murmur, systolic, irregular, irregular S1, S2 normal Abdomen Soft, No tenderness Extremities Normal pulses Neurological right-sided hemiplegia, nonverbal LAB Results Laboratory Tests 08/28 08/28 08/28 2150 2150 2210 Chemistry Plasma Sodium (136 - 145 mmol/L) 131 Plasma Potassium (3.5 - 5.1 mmol/L) 4.8 Plasma Chloride (98 - 107 mmol/L) 96 CO2 (Enzymatic) (21 - 32 mmol/L) 24 BUN (7 - 18 mg/dL) 27 Creatinine (0.6 - 1.3 mg/dL) 0.8 Est GFR ( Amer) (mL/min) >60 Est GFR (Non-Af Amer) (mL/min) >60 Glucose (70 - 110 mg/dL) 164 Lactic Acid (0.4 - 2.0 mmol/L) 5.8 Plasma Calcium (8.5 - 10.1 mg/dL) 8.4 Plasma Magnesium (1.8 - 2.4 mg/dL) 1.9 Total Bilirubin (0.0 - 1.0 mg/dL) 0.4 AST (15 - 37 U/L) 33 ALT (12 - 78 U/L) 30 Alkaline Phosphatase (46 - 116 U/L) 76 Creatine Kinase (24 - 260 U/L) 51 Troponin (0.00 - 1.5 ng/mL) 0.15 Total Protein (6.4 - 8.2 g/dL) 9.7 Albumin (3.3 - 5.0 g/dL) 2.5 Hematology WBC (4.5 - 11.5 K/uL) 8.5 RBC (4.00 - 5.20 M/uL) 3.74 Hgb (12.0 - 16.0 gm/dL) 8.9 Hct (36.0 - 46.0 %) 28.7 MCV (80 - 100 fL) 77 MCH (26 - 34 pg) 24 RDW (11.6 - 14.8 %) 19.5 Neut % (Auto) (50 - 75 %) 77.6 Lymph % (Auto) (25 - 40 %) 18.8 [place] % (Auto) (3 - 14 %) 2.7 Eos % (Auto) (0 - 4 %) 0.7 Baso % (Auto) (0 - 2 %) 0.2 Plt Count, EDTA (150 - 400 K/uL) 380 PUBS MCHC (31 - 37 g/dL) 31 Urines Urine Color YELLOW Urine Appearance HAZY Urine pH (5.0 - 8.0) 8.0 Ur Specific [place] (1.010 - 1.030) 1.015 Urine Protein (NEGATIVE) TRACE Urine Ketones (NEGATIVE) NEGATIVE Urine Blood (NEGATIVE) NEGATIVE Urine Nitrite (NEGATIVE) NEGATIVE Urine Bilirubin (NEGATIVE) NEGATIVE Urine Urobilinogen (0.2 - 1.0 EU/dL) 0.2 Ur Leukocyte Esterase (NEGATIVE) NEGATIVE Urine RBC (0 - 1 rbc/hpf) 0-1 Urine WBC (0 - 1 wbc/hpf) 0-1 Ur Epithelial Cells (0 - 5 EPI/hpf) RARE Urine Bacteria (NONE SEEN) NONE SEEN Urine Glucose (NEGATIVE) NEGATIVE Urine Comment CULT NOT INDICATED Microbiology Date/Time Procedure - Status Source Growth 08/29 53 Respiratory Culture - ORD SPUTUM 08/29 53 Culture and Gram Stain - ORD SPUTUM 08/28 2149 Blood Culture - RECD BLOOD 08/28 2149 Blood Culture - RECD BLOOD Assessment and Plan Problem List 1. Pneumonia Plan Recent history of aspiration pneumonia patient; dysphagia since her stroke 2017. Patient currently with signs and symptoms of pneumonia. Infiltrate in the right lower lung base. Patient with an elevated lactic acidosis. Hypoxia with paroxysmal A. fib. Started on vancomycin and Zosyn in the ED, given recent history of pneumonia. Consider hospital-acquired pneumonia Patient with an elevated lactic acidosis. Serial lactic acid to follow. Sputum cultures The cultures to follow. Monitor vitals Repeat neurochecks. 2. Lactic acidosis Plan Elevated lactic acidosis eating criteria for sepsis. Repeat in 6-8 hours. Along with pro-calcitonin. Current dual coverage. Fluid hydration Given one bolus IV fluid. Monitor vitals 3. Altered mental status, unspecified Plan Acute changes in mental status; likely a function of the illness. History of stroke with dysphagia and aphasia Monitor for acute changes in neuro status. 4. Paroxysmal a-fib Plan Long history of paroxysmal A. fib. Patient has refused chronic source of blood thinners in the past Patient's present on prophylactic anticoagulant during hospitalization. Continue with aspirin 325 daily Maintain optimal rate control. Continue with the carvedilol. 5. History of CVA (cerebrovascular accident) Plan Returning home 4 days ago with decline in symptoms seen at the [facility] ED Patient will likely return home with home health. Discussed the possibility of hospice and comfort measures. 6. Dysphagia Plan Dysphagia since the CVA Speech therapy is available. Home health. This will be implemented on her discharge. 7. Hyperglycemia Plan Monitor blood sugars; implement a sliding scale if needed 8. Anemia Plan Chronic history of anemia. Seen here with a hemoglobin of 8.9. With the iron supplementation on a daily basis. We consider other alternatives for testing in the future 9. S/P percutaneous endoscopic gastrostomy (PEG) tube placement Plan History of endarterectomy on the right Stable 10. Hypoxia Plan Hypoxemia on admission. She had been off all forms of oxygen therapy at home. Continue to monitor and watch. 11. CHF (congestive heart failure) Plan Monitor weights and ins and outs. Salt restriction and fluid restrictions Continue with carvedilol and CHRISTI inhibitor Current status: Fair to poor Anticipated discharge date: 1-2 days Anticipated discharge placement: Home with home health Patient care time: Time spent in chart review, patient interview, physical exam, CPOE, and care documentation: 70 minutes Visit to patient today: 2 Complexity of care: Monitor E&M Codes Admission: Inpt-High/[id number]
--- NOTE | 2016-08-29 01:01 | Progress Note ---
Subjective General Admission History and Physical Examination Patient Name: Dixie Sheppard Admission Date: 08/29/2016 Primary Care Provider: Celeste Hernandez MD Attending Physician: Paresh Reeves M.D. Admitting Physician: Abraham Rico MD Code Status: No Code Room: 209 SUBJECTIVE Historian: history unattainable by patient. All history was through emergency department and through her . Reliability: undetermined Chief Complaint: Changes in mental status Gurgling History of Present Illness: The patient is a 76-year-old white female with history of multiple strokes ( left MCA stroke 05/23/16) (right MCA ) now right Hemeplegia, with aphagia and PEG,, CAD , S/P 3 vessel bypass 2006, paroxysmal A. fib, hypertension, hyperlipidemia, PVD, CHF (Last echo showing 50% EF), who presented to [facility] emergency department on the day of admission secondary to changes in her normal base line mental status and with difficulty breathing.. [facility] ER evaluation was consistent with right lower lobe pneumonia, lactic acidosis, mental status change from baseline addition to tachycardi, potential sepsis. The patient has just recently returned home after being in acute rehabilitation facility with [facility] for the past 4 weeks. There she was treated in rehabilitation for stroke 2 with right-sided hemiplegia. Her initial stroke was in March [id number] the right hemisphere; at that time, an endarterectomy of the carotids was performed. Patient one month later sustained further stroke involving the left MCA and left hemisphere causing right-sided hemiplegia. Patient was managed her prominence and through [facility]. Patient had a PEG tube placed due to poor swallowing, dysphagia. Patient is dysphasic. 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 But will have home health unavailable. Patient just returned home on 22 August. This evening, patient's and went in to see patient. She apparently had taken off her soiled briefs. She is also found to have changes in her mental status from her normal baseline. Patient also noticed a gurgling sound coming from her chest. Concern for repeated pneumonia. He brought her to the [facility] ED for further workup. [facility] ED, she was placed onsepsis protocol due to elevated lactic acid. On x-rays found that she had bright lower lobe infiltrates.Patient also was found to be in A. fib with RVR. Rate control was attempted with Limited success. Patient was admitted under the acute care with telemetry. Secondary to the above, the patient was admitted By Abraham Rico M.D.. for further evaluation and treatment. PAST MEDICAL HISTORY Illnesses: 1. CAD status post CABG 2006 2. CHF 3. CVA right-sided hemiplegia, aphasia 4. PAD 5. Dysphagia 6. Hypertension. 7. Hyperlipidemia. 8. Paroxysmal A. fib Allergies: 1. Sulfa, promethazine 2. Amlodipine nausea 3. Simvastatin diarrhea Medications: 1.Atorvastatin 20 mg by PEG tube daily 2. Carvedilol 6.25 mg enteral tube every 12 hours 3. Lisinopril 10 mg 1 tab enteral tube daily 4. Potassium chloride 20 mmHg per 15 mill 15 [place] by enteral tube daily 5. Vitamin C 500 mg enteral tube thousand milligrams daily. 6. Ferrous sulfate 44 FE, MG/5 mils. Taking 7.5 ml by enteral tube daily 7. Aspirin 324 mg enteral tube daily 8. Furosemide 40 mg enteral tube daily 9. Biotin dry mouth, mouthwash liquid sublingual I mouth 4 times per day 10. Liquid tears 1.4% solution 1-2 drops daily 11. Seroquel 12.5 mg daily. 12. Benzocaine 10% gel to apply to sore gums 13. Nature source fiber 50 mils one scoop in water in the antral tube daily 14. Sertraline 100 mg by enteral tube daily 15. Tylenol 325 mg 2 tabs as needed 16. Probiotic 250 mg By enteral tube daily Surgery: 1. CABG with stent placement 2006. 2. Sinus surgery. 3. Coronary angioplasty with stent placement. 4. Transesophageal echocardiogram. 5. Carotid endarterectomy Injuries: 1. None Hospitalizations: 1. [facility] 2016 2. [facility] 2004 FAMILY HISTORY Parents: 1. Father, passsed from complications arising from liver cirrhosis.70s, 2. Mother, house with patient 92 from old age Children: 1. 2 boys ages 54 and 44, daughter 57 SOCIAL HISTORY 1. Marital Status: 55 years marriage 2. Taoist: Anabaptism 3. 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 Occupational health exposures: none HABITS 1. Tobacco: , remote history quit in the 80s 2. Drugs: none 3. Alcohol:none HEALTH SUPERVISION Item/Test Unknown IMMUNIZATIONS: Need to follow-up on record 1. Pneumococcal: [pneumonia] 2. Influenza: [flu] 3. Tetanus: [tet] ADVANCED DIRECTIVES: 1. Living well: available on file 2. POLST: available in the home 3. Code Status: no code 4. 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 Donor card: unknown REVIEW OF SYSTEMS Remarkable for those things stated in the history of present illness and past medical history. ROS Constitutional Weakness, Malaise. Denies: Fever. Eyes Other. Cardiovascular Other. Physical Exam Vital Signs / I&Os Vital Signs Date Time Temp Pulse Resp B/P Pulse O2 O2 Flow FiO2 Ox Delivery Rate 08/29 0126 98.4 69 21 106/49 95 Mask 3.0 General Appearance Mild distress, non responsive HEENT dry mucous membranes Lungs decrease air movement. Shallow breathing Neck Supple, No JVD Cardiovascular murmur, systolic, irregular, irregular S1, S2 normal Abdomen Soft, No tenderness Extremities Normal pulses Neurological right-sided hemiplegia, nonverbal LAB Results Laboratory Tests 08/28 08/28 08/28 2150 2150 2210 Chemistry Plasma Sodium (136 - 145 mmol/L) 131 Plasma Potassium (3.5 - 5.1 mmol/L) 4.8 Plasma Chloride (98 - 107 mmol/L) 96 CO2 (Enzymatic) (21 - 32 mmol/L) 24 BUN (7 - 18 mg/dL) 27 Creatinine (0.6 - 1.3 mg/dL) 0.8 Est GFR ( Amer) (mL/min) >60 Est GFR (Non-Af Amer) (mL/min) >60 Glucose (70 - 110 mg/dL) 164 Lactic Acid (0.4 - 2.0 mmol/L) 5.8 Plasma Calcium (8.5 - 10.1 mg/dL) 8.4 Plasma Magnesium (1.8 - 2.4 mg/dL) 1.9 Total Bilirubin (0.0 - 1.0 mg/dL) 0.4 AST (15 - 37 U/L) 33 ALT (12 - 78 U/L) 30 Alkaline Phosphatase (46 - 116 U/L) 76 Creatine Kinase (24 - 260 U/L) 51 Troponin (0.00 - 1.5 ng/mL) 0.15 Total Protein (6.4 - 8.2 g/dL) 9.7 Albumin (3.3 - 5.0 g/dL) 2.5 Hematology WBC (4.5 - 11.5 K/uL) 8.5 RBC (4.00 - 5.20 M/uL) 3.74 Hgb (12.0 - 16.0 gm/dL) 8.9 Hct (36.0 - 46.0 %) 28.7 MCV (80 - 100 fL) 77 MCH (26 - 34 pg) 24 RDW (11.6 - 14.8 %) 19.5 Neut % (Auto) (50 - 75 %) 77.6 Lymph % (Auto) (25 - 40 %) 18.8 [place] % (Auto) (3 - 14 %) 2.7 Eos % (Auto) (0 - 4 %) 0.7 Baso % (Auto) (0 - 2 %) 0.2 Plt Count, EDTA (150 - 400 K/uL) 380 PUBS MCHC (31 - 37 g/dL) 31 Urines Urine Color YELLOW Urine Appearance HAZY Urine pH (5.0 - 8.0) 8.0 Ur Specific [place] (1.010 - 1.030) 1.015 Urine Protein (NEGATIVE) TRACE Urine Ketones (NEGATIVE) NEGATIVE Urine Blood (NEGATIVE) NEGATIVE Urine Nitrite (NEGATIVE) NEGATIVE Urine Bilirubin (NEGATIVE) NEGATIVE Urine Urobilinogen (0.2 - 1.0 EU/dL) 0.2 Ur Leukocyte Esterase (NEGATIVE) NEGATIVE Urine RBC (0 - 1 rbc/hpf) 0-1 Urine WBC (0 - 1 wbc/hpf) 0-1 Ur Epithelial Cells (0 - 5 EPI/hpf) RARE Urine Bacteria (NONE SEEN) NONE SEEN Urine Glucose (NEGATIVE) NEGATIVE Urine Comment CULT NOT INDICATED Microbiology Date/Time Procedure - Status Source Growth 08/29 53 Respiratory Culture - ORD SPUTUM 08/29 53 Culture and Gram Stain - ORD SPUTUM 08/28 2149 Blood Culture - RECD BLOOD 08/28 2149 Blood Culture - RECD BLOOD Assessment and Plan Problem List 1. Pneumonia Plan Recent history of aspiration pneumonia patient; dysphagia since her stroke 2017. Patient currently with signs and symptoms of pneumonia. Infiltrate in the right lower lung base. Patient with an elevated lactic acidosis. Hypoxia with paroxysmal A. fib. Started on vancomycin and Zosyn in the ED, given recent history of pneumonia. Consider hospital-acquired pneumonia Patient with an elevated lactic acidosis. Serial lactic acid to follow. Sputum cultures The cultures to follow. Monitor vitals Repeat neurochecks. 2. Lactic acidosis Plan Elevated lactic acidosis eating criteria for sepsis. Repeat in 6-8 hours. Along with pro-calcitonin. Current dual coverage. Fluid hydration Given one bolus IV fluid. Monitor vitals 3. Altered mental status, unspecified Plan Acute changes in mental status; likely a function of the illness. History of stroke with dysphagia and aphasia Monitor for acute changes in neuro status. 4. Paroxysmal a-fib Plan Long history of paroxysmal A. fib. Patient has refused chronic source of blood thinners in the past Patient's present on prophylactic anticoagulant during hospitalization. Continue with aspirin 325 daily Maintain optimal rate control. Continue with the carvedilol. 5. History of CVA (cerebrovascular accident) Plan Returning home 4 days ago with decline in symptoms seen at the [facility] ED Patient will likely return home with home health. Discussed the possibility of hospice and comfort measures. 6. Dysphagia Plan Dysphagia since the CVA Speech therapy is available. Home health. This will be implemented on her discharge. 7. Hyperglycemia Plan Monitor blood sugars; implement a sliding scale if needed 8. Anemia Plan Chronic history of anemia. Seen here with a hemoglobin of 8.9. With the iron supplementation on a daily basis. We consider other alternatives for testing in the future 9. S/P percutaneous endoscopic gastrostomy (PEG) tube placement Plan History of endarterectomy on the right Stable 10. Hypoxia Plan Hypoxemia on admission. She had been off all forms of oxygen therapy at home. Continue to monitor and watch. 11. CHF (congestive heart failure) Plan Monitor weights and ins and outs. Salt restriction and fluid restrictions Continue with carvedilol and CHRISTI inhibitor Current status: Fair to poor Anticipated discharge date: 1-2 days Anticipated discharge placement: Home with home health Patient care time: Time spent in chart review, patient interview, physical exam, CPOE, and care documentation: 70 minutes Visit to patient today: 2 Complexity of care: Monitor E&M Codes Admission: Inpt-High/[id number]
--- NOTE | 2016-08-29 02:12 | Progress Note ---
Subjective General ADVANCED CARE PLAN History of Present Illness 76-year-old white female with history of multiple strokes (left MCA stroke ) (right MCA ) now right Hemeplegia, with aphagia and PEG,, CAD , S/P 3 vessel bypass 2006, paroxysmal A. fib, hypertension, hyperlipidemia, PVD, CHF (Last echo showing 50% EF), who presented to [facility] emergency department on the day of admission secondary to changes in her normal base line mental status and with difficulty breathing.. [facility] ER evaluation was consistent with right lower lobe pneumonia, lactic acidosis, mental status change from baseline addition to tachycardi, potential sepsis. A discussion was undertaken with the patient regarding previous advance care arrangements/decisions. The following advanced directives were noted by the patient and discussed with me at the time of admission. ADVANCED DIRECTIVES: 1. Living well: Available on file 2. POLST, available in the home unknown 3. CODE STATUS: No code 4. Durable Power [employer] [facility] care: 5. Donor card: Unknown The patient has expressed interest in not pursuing any form of resuscitation at this time. She has opted not to pursue intubation/mechanical ventilation, CPR, electrical cardioversion, or life-sustaining efforts involving drugs at the time of cardiopulmonary arrest. The patient has a paperwork available The patient's wishes were documented in the chart and orders regarding the patient's wishes entered into the [employer] CPOE system. The "Advance Care Plan Document" was not distributed to patient to discuss with her family. Less than 30 minutes was spent in performing the above tasks and documentation of the patient's advanced care plan. Physical Exam Vital Signs / I&Os Vital Signs Date Time Temp Pulse Resp B/P Pulse O2 O2 Flow FiO2 Ox Delivery Rate 08/29 0126 98.4 69 21 106/49 95 Mask 3.0
--- NOTE | 2016-08-29 02:12 | Progress Note ---
Subjective General ADVANCED CARE PLAN History of Present Illness 76-year-old white female with history of multiple strokes (left MCA stroke ) (right MCA ) now right Hemeplegia, with aphagia and PEG,, CAD , S/P 3 vessel bypass 2006, paroxysmal A. fib, hypertension, hyperlipidemia, PVD, CHF (Last echo showing 50% EF), who presented to [facility] emergency department on the day of admission secondary to changes in her normal base line mental status and with difficulty breathing.. [facility] ER evaluation was consistent with right lower lobe pneumonia, lactic acidosis, mental status change from baseline addition to tachycardi, potential sepsis. A discussion was undertaken with the patient regarding previous advance care arrangements/decisions. The following advanced directives were noted by the patient and discussed with me at the time of admission. ADVANCED DIRECTIVES: 1. Living well: Available on file 2. POLST, available in the home unknown 3. CODE STATUS: No code 4. Durable Power [employer] Rn Health care: 5. Donor card: Unknown The patient has expressed interest in not pursuing any form of resuscitation at this time. She has opted not to pursue intubation/mechanical ventilation, CPR, electrical cardioversion, or life-sustaining efforts involving drugs at the time of cardiopulmonary arrest. The patient has a paperwork available The patient's wishes were documented in the chart and orders regarding the patient's wishes entered into the [employer] system. The "Advance Care Plan Document" was not distributed to patient to discuss with her family. Less than 30 minutes was spent in performing the above tasks and documentation of the patient's advanced care plan. Physical Exam Vital Signs / I&Os Vital Signs Date Time Temp Pulse Resp B/P Pulse O2 O2 Flow FiO2 Ox Delivery Rate 08/29 0126 98.4 69 21 106/49 95 Mask 3.0
[2016-08-29] MEDS ORDERED: ATORVASTATIN CA20 MG PTUBE (03:23)
[2016-08-29] MEDS ORDERED: LISINOPRIL10 MG PTUBE (03:24)
[2016-08-29] MEDS ORDERED: COREG6.25 MG PTUBE (03:24)
[2016-08-29] MEDS ORDERED: [UNRECOGNIZED DRUG - OTHER] PO (03:26)
[2016-08-29] MEDS ORDERED: POTASSIUM CHLO10 ME2 PTUBE (03:27)
[2016-08-29] MEDS ORDERED: VITAMIN C500 M1 PTUBE (03:28)
[2016-08-29] MEDS ORDERED: FERROUS SULFAT324 M1 PTUBE (03:29)
[2016-08-29] MEDS ORDERED: ASPIRIN ADULT L81 MG PTUBE (03:30)
[2016-08-29] MEDS ORDERED: FUROSEMIDE40 MG PTUBE (03:30)
[2016-08-29] MEDS ORDERED: BIOTENE MOISTURIZING PO (03:32)
[2016-08-29] MEDS ORDERED: LIQUITEARS OP (03:33)
[2016-08-29] MEDS ORDERED: SEROQUEL25 MG PTUBE ×2 (03:33→03:34)
[2016-08-29] MEDS ORDERED: ANBESOL TOP (03:37)
[2016-08-29] MEDS ORDERED: ZOLOFT50 MG PTUBE (03:39)
[2016-08-29] MEDS ORDERED: TYLENOL325 MG/10. PTUBE (03:40)
[2016-08-29] MEDS ORDERED: FLORASTOR250 MG PTUBE (03:41)
[2016-08-29] MEDS ORDERED: ABILIFY5 MG PO (03:42)
--- NOTE | 2016-08-29 09:21 | Progress Note ---
Subjective General Disccused with Patient's Sarthak Sheppard about patient's care, he would like pt to be comforte care only and will consider Hospic care if insurance covers it
[2016-08-30 02:22] VITALS: BP 105/43
[2016-08-30 06:31] VITALS: BP 144/59
--- NOTE | 2016-08-30 08:11 | Progress Note ---
Subjective General The pateint is unresponsive, lying on bed, seems comfortable, Physical Exam Vital Signs / I&Os Vital Signs Date Time Temp Pulse Resp B/P Pulse O2 O2 Flow FiO2 Ox Delivery Rate 08/30 0631 100.2 113 22 144/59 93 Nasal 2.0 Cannula 08/30 0222 99.3 93 20 105/43 95 Nasal 2.0 Cannula 08/30 0153 Nasal 2.0 Cannula 08/29 2305 99.7 102 16 102/49 97 Nasal 2.0 Cannula 08/29 2207 91 08/29 2000 99.1 91 18 150/48 99 Nasal 2.0 Cannula 08/29 1903 1.0 08/29 1820 98.2 74 18 147/70 100 Nasal 2.0 Cannula 08/29 1545 Nasal 2.0 Cannula 08/29 1446 115/44 08/29 1446 103/38 07 1430 98.8 74 18 78/42 94 Nasal 2.0 Cannula 08/29 1045 68 07/07 0850 97.7 68 18 127/42 97 Nasal 2.0 Cannula 08/29 0845 Nasal 2.0 Cannula I&O 08/30 0000 08/29 1600 08/29 0800 Intake Total 0 0 201 Output Total 1400 440 Balance 0 -1400 -239 Lungs Clear to auscultation Cardiovascular Regular rate and rhythm, Normal S1 and S2, No murmurs, gallops, rubs Abdomen Soft, No tenderness, No guarding Extremities No edema Assessment and Plan Problem List 1. Altered mental status, unspecified Plan Patient is comfort care only now and will be discharged on Hospic care 2. Pneumonia Plan continue IV abx for today, consider oral abx through PEG tube 3. Paroxysmal a-fib Plan rate controlled 4. CHF (congestive heart failure) Plan seems controlld no more labe work
[2016-08-30 12:30] VITALS: BP 120/56
[2016-08-30] MEDS ORDERED: LEVAQUIN500 MG PO (13:35)
[2016-08-30] MEDS ORDERED: VALIUM5 MG PO (15:08)
--- NOTE | 2016-08-30 15:37 | Discharge Summary ---
Discharge Summary Report Admit Date 08/28/16 Discharge Date 08/30/16 Admission Diagnosis 1- change in mental status 2-pneumonia 3-H/O stroke 4-Afib Discharge Diagnosis 1-pneumonia 2- Seizure 3-Afib 4-H/O stroke Brief History The patient is a 76-year-old white female with history of multiple strokes ( left MCA stroke 05/23/16) (right MCA ) now right Hemeplegia, with aphagia and PEG,, CAD , S/P 3 vessel bypass 2006, paroxysmal A. fib, hypertension, hyperlipidemia, PVD, CHF (Last echo showing 50% EF), who presented to [facility] emergency department on the day of admission secondary to changes in her normal base line mental status and with difficulty breathing.. [facility] ER evaluation was consistent with right lower lobe pneumonia, lactic acidosis, mental status change from baseline addition to tachycardi, potential sepsis. The patient has just recently returned home after being in acute rehabilitation facility with [facility] for the past 4 weeks. There she was treated in rehabilitation for stroke 2 with right-sided hemiplegia. Her initial stroke was in March [id number] the right hemisphere; at that time, an endarterectomy of the carotids was performed. Patient one month later sustained further stroke involving the left MCA and left hemisphere causing right-sided hemiplegia. Patient was managed her prominence and through [facility]. Patient had a PEG tube placed due to poor swallowing, dysphagia. Patient is dysphasic. 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 But will have home health unavailable. Patient just returned home on 22 August. This evening, patient's and went in to see patient. She apparently had taken off her soiled briefs. She is also found to have changes in her mental status from her normal baseline. Patient also noticed a gurgling sound coming from her chest. Concern for repeated pneumonia. He brought her to the [facility] ED for further workup. [facility] ED, she was placed onsepsis protocol due to elevated lactic acid. On x-rays found that she had bright lower lobe infiltrates.Patient also was found to be in A. fib with RVR. Rate control was attempted with Limited success. Patient was admitted under the acute care with telemetry. Secondary to the above, the patient was admitted By Abraham Rico M.D.. for further evaluation and treatment. Hospital Course Patient was admitted to , was started on IV hydration and vancomycin and Zosyn , per discussion that Dr Rico and I had with family Patient became full no code then comfort measurs only and then HOSPIC. Patient discharged mario on HOSPIC care , with Vallium 5mg bid for possible seizure and Levaquin 500gm for 10 days, home O2. Discharge Instructions/Meds HOSPIC care personal will see patient in her home tommorrow.
--- NOTE | 2016-08-30 15:37 | Discharge Summary ---
Discharge Summary Report Admit Date 08/28/16 Discharge Date 08/30/16 Admission Diagnosis 1- change in mental status 2-pneumonia 3-H/O stroke 4-Afib Discharge Diagnosis 1-pneumonia 2- Seizure 3-Afib 4-H/O stroke Brief History The patient is a 76-year-old white female with history of multiple strokes ( left MCA stroke 05/23/16) (right MCA ) now right Hemeplegia, with aphagia and PEG,, CAD , S/P 3 vessel bypass 2006, paroxysmal A. fib, hypertension, hyperlipidemia, PVD, CHF (Last echo showing 50% EF), who presented to [facility] emergency department on the day of admission secondary to changes in her normal base line mental status and with difficulty breathing.. [facility] ER evaluation was consistent with right lower lobe pneumonia, lactic acidosis, mental status change from baseline addition to tachycardi, potential sepsis. The patient has just recently returned home after being in acute rehabilitation facility with [facility] for the past 4 weeks. There she was treated in rehabilitation for stroke 2 with right-sided hemiplegia. Her initial stroke was in March 19991714 the right hemisphere; at that time, an endarterectomy of the carotids was performed. Patient one month later sustained further stroke involving the left MCA and left hemisphere causing right-sided hemiplegia. Patient was managed her prominence and through [facility]. Patient had a PEG tube placed due to poor swallowing, dysphagia. Patient is dysphasic. 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 But will have home health unavailable. Patient just returned home on 22 August. This evening, patient's and went in to see patient. She apparently had taken off her soiled briefs. She is also found to have changes in her mental status from her normal baseline. Patient also noticed a gurgling sound coming from her chest. Concern for repeated pneumonia. He brought her to the [facility] ED for further workup. [facility] ED, she was placed onsepsis protocol due to elevated lactic acid. On x-rays found that she had bright lower lobe infiltrates.Patient also was found to be in A. fib with RVR. Rate control was attempted with Limited success. Patient was admitted under the acute care with telemetry. Secondary to the above, the patient was admitted By Abraham Rico M.D.. for further evaluation and treatment. Hospital Course Patient was admitted to , was started on IV hydration and vancomycin and Zosyn , per discussion that Dr Rico and I had with family Patient became full no code then comfort measurs only and then HOSPIC. Patient discharged mario on HOSPIC care , with Vallium 5mg bid for possible seizure and Levaquin 500gm for 10 days, home O2. Discharge Instructions/Meds HOSPIC care personal will see patient in her home tommorrow.
--- NOTE | 2016-09-10 21:10 | ED DISCHARGE INSTRUCTIONS ---
Patient: AISHA MALIN General Instructions VisitID: [id number] [place] [place] [address] 76y, F Registration Date/Time: 08/28/2016 Sepsis with altered mental status and acute central nervous system failure. Bacterial pneumonia with sepsis. Vital signs recorded and reviewed; empiric antibiotics given in the ED. (hospital-acquired). (Electronically signed by Joy Jerry MD 09/10/2016 21:10)
--- NOTE | 2016-09-10 21:10 | ED MED RECONCILIATION SUMMARY ---
Patient: AISHA MALIN Medication Reconciliation Report [facility] VisitID: [id number] [address] [place] [address] 76y, F Registration Date/Time: 08/28/2016 Weight: 52.6 kg Height/Length: 63 in. BMI: 20.5 ALLERGIES: Amlodipine, Phenergan, Simvastatin, Sulfa Drugs The patient's Home Medications are listed below: THE FOLLOWING MEDICATIONS NEED TO BE RECONCILED: Aspir-81 Oral Atorvastatin Calcium Oral 20 mg, at bedtime Biotene Moisturizing Mouth Mouth/Throat Carvedilol Oral (6.25 mg), 2xdaily Ferrous Sulfate Oral (220 (44 Fe) mg/5mL) 7.5 mL, daily Furosemide Oral 20 mg, 2x a day Lisinopril Oral 10 mg, daily Nutrisource Fiber Oral Orajel Mouth/Throat Polyvinyl Alcohol Ophthalmic Potassium Chloride Oral (20 MEQ/15ML (10%)), daily Probiotic Oral SEROquel Oral 25 mg, daily, 0.5 tab Sertraline HCl Oral (20 mg/mL) 5 ml, daily Tylenol Oral, PRN Vitamin c Oral (500 mg) The source(s) of the original Home Medication information: patient's family member The following Medications were given to the patient in the Emergency Department: Ativan [IVP] IVP 0.5 mg, administered: 08/28/2016 9:45:00 PM Cleocin [IVPB] IVPB bolus 0, then 900 mg 100 mL/hr, administered: 08/28/2016 10:51:00 PM IV NS IV Fluids bolus 0, then 1000 mL/hr, administered: 08/28/2016 11:03:00 PM Vancomycin [IVPB] IVPB bolus 0, then 1 gm 200 mL/hr, administered: 08/29/2016 12:19:00 AM The following Medications were prescribed to the patient: None.
--- NOTE | 2016-09-10 21:10 | ED MAR SUMMARY ---
..... Medication Administration Record [facility] [address] [place] [address] Patient: AISHA MALIN Visit ID: [id number] 76y, F Weight: 52.6 kg Height/Length: 63 in BMI: 20.5 ALLERGIES: Amlodipine, Simvastatin, Phenergan, Sulfa Drugs Given 21:45 08/28/2016 Peg Daniels, Medication Administered: ATIVAN [IVP] (LORAZEPAM), Dose: 0.5 mg IVP over 30 second(s), Site: #1. Medication Ordered: Ativan IV 0.5 mg (HIGH ALERT MEDICATION, NOW). Start 22:51 08/28/2016 Peg Daniels,, Stop 23:21 08/28/2016 Peg Daniels, Medication Administered: CLEOCIN [IVPB] (CLINDAMYCIN PHOSPHATE), Dose: 900 mg IVPB over 30 minute(s), Rate: 100 mL/hr, Dispensed: 50 mL bag, Site: #1 right wrist. Medication Ordered: Cleocin IV 900 mg/50mL (NOW). Start 23:03 08/28/2016 Peg Daniels,, Stop 23:48 08/28/2016 Peg Daniels, Medication Administered: IV NS (SALINE), Dose: IV Fluids over 45 minute(s), Rate: 1000 mL/hr, Dispensed: 1000 mL bag, Site: #1 right wrist. Medication Ordered: IV NS : initial bolus 1000 mL (1000 mL/hr), then 1000 mL/hr for X1 (NOW) (first 250 mls given by EMS.). Start 00:19 08/29/2016 Peg Daniels,, Continued Upon Admission 00:39 08/29/2016 Peg Daniels, Medication Administered: VANCOMYCIN [IVPB], Dose: 1 gm IVPB over 1 hour(s), Rate: 200 mL/hr, Dispensed: 200 mL bag, Site: #1 right wrist. Medication Ordered: Vancomycin IV 1 gm/200mL (NOW).
--- NOTE | 2016-09-10 21:10 | ED DISCHARGE INSTRUCTIONS ---
Patient: AISHA MALIN General Instructions [facility] VisitID: [id number] [address] [place] [address] 76y, F Registration Date/Time: 08/28/2016 Sepsis with altered mental status and acute central nervous system failure. Bacterial pneumonia with sepsis. Vital signs recorded and reviewed; empiric antibiotics given in the ED. (hospital-acquired). (Electronically signed by Joy Jerry MD 09/10/2016 21:10)
--- NOTE | 2016-09-10 21:10 | ED MED RECONCILIATION SUMMARY ---
Patient: AISHA MALIN Medication Reconciliation Report [facility] VisitID: [id number] [address] [place] [address] 76y, F Registration Date/Time: 08/28/2016 Weight: 52.6 kg Height/Length: 63 in. BMI: 20.5 ALLERGIES: Amlodipine, Phenergan, Simvastatin, Sulfa Drugs The patient's Home Medications are listed below: THE FOLLOWING MEDICATIONS NEED TO BE RECONCILED: Aspir-81 Oral Atorvastatin Calcium Oral 20 mg, at bedtime Biotene Moisturizing Mouth Mouth/Throat Carvedilol Oral (6.25 mg), 2xdaily Ferrous Sulfate Oral (220 (44 Fe) mg/5mL) 7.5 mL, daily Furosemide Oral 20 mg, 2x a day Lisinopril Oral 10 mg, daily Nutrisource Fiber Oral Orajel Mouth/Throat Polyvinyl Alcohol Ophthalmic Potassium Chloride Oral (20 MEQ/15ML (10%)), daily Probiotic Oral SEROquel Oral 25 mg, daily, 0.5 tab Sertraline HCl Oral (20 mg/mL) 5 ml, daily Tylenol Oral, PRN Vitamin c Oral (500 mg) The source(s) of the original Home Medication information: patient's family member The following Medications were given to the patient in the Emergency Department: Ativan [IVP] IVP 0.5 mg, administered: 08/28/2016 9:45:00 PM Cleocin [IVPB] IVPB bolus 0, then 900 mg 100 mL/hr, administered: 08/28/2016 10:51:00 PM IV NS IV Fluids bolus 0, then 1000 mL/hr, administered: 08/28/2016 11:03:00 PM Vancomycin [IVPB] IVPB bolus 0, then 1 gm 200 mL/hr, administered: 08/29/2016 12:19:00 AM The following Medications were prescribed to the patient: None.
--- NOTE | 2016-09-10 21:10 | ED MAR SUMMARY ---
..... Medication Administration Record [facility] [address] [place] [address] Patient: AISHA MALIN Visit ID: [id number] 76y, F Weight: 52.6 kg Height/Length: 63 in BMI: 20.5 ALLERGIES: Amlodipine, Simvastatin, Phenergan, Sulfa Drugs Given 21:45 08/28/2016 Peg Daniels, Medication Administered: ATIVAN [IVP] (LORAZEPAM), Dose: 0.5 mg IVP over 30 second(s), Site: #1. Medication Ordered: Ativan IV 0.5 mg (HIGH ALERT MEDICATION, NOW). Start 22:51 08/28/2016 Peg Daniels,, Stop 23:21 08/28/2016 Peg Daniels, Medication Administered: CLEOCIN [IVPB] (CLINDAMYCIN PHOSPHATE), Dose: 900 mg IVPB over 30 minute(s), Rate: 100 mL/hr, Dispensed: 50 mL bag, Site: #1 right wrist. Medication Ordered: Cleocin IV 900 mg/50mL (NOW). Start 23:03 08/28/2016 Peg Daniels,, Stop 23:48 08/28/2016 Peg Daniels, Medication Administered: IV NS (SALINE), Dose: IV Fluids over 45 minute(s), Rate: 1000 mL/hr, Dispensed: 1000 mL bag, Site: #1 right wrist. Medication Ordered: IV NS : initial bolus 1000 mL (1000 mL/hr), then 1000 mL/hr for X1 (NOW) (first 250 mls given by EMS.). Start 00:19 08/29/2016 Peg Daniels,, Continued Upon Admission 00:39 08/29/2016 Peg Daniels, Medication Administered: VANCOMYCIN [IVPB], Dose: 1 gm IVPB over 1 hour(s), Rate: 200 mL/hr, Dispensed: 200 mL bag, Site: #1 right wrist. Medication Ordered: Vancomycin IV 1 gm/200mL (NOW).
== END 2016-08-30 15:15 | disposition hospice, home (50) | DRG 194 ==
LOC: ED SRH 21:38 → TRANS SRH 23:16 → ACUTE2 SRH 23:16 → TRANS SRH 23:16 → ACUTE2 SRH 08-29 01:47 → TRANS SRH 08-29 01:47 → ACUTE2 SRH 08-29 01:47
PROVIDERS: ADMIT Pediatrics
DX: J18.9 Pneumonia, unspecified organism (principal); R09.02 Hypoxemia; E87.2 Acidosis; I69.951 Hemiplegia and hemiparesis following unspecified cerebrovascular disease affecting right dominant side; I48.0 Paroxysmal atrial fibrillation; R73.9 Hyperglycemia, unspecified; I69.991 Dysphagia following unspecified cerebrovascular disease; R13.10 Dysphagia, unspecified; I10 Essential (primary) hypertension; D50.9 Iron deficiency anemia, unspecified; I25.10 Atherosclerotic heart disease of native coronary artery without angina pectoris; E78.5 Hyperlipidemia, unspecified; Z95.1 Presence of aortocoronary bypass graft; Z93.1 Gastrostomy status; Z95.5 Presence of coronary angioplasty implant and graft; I69.920 Aphasia following unspecified cerebrovascular disease